=== PATIENT | female | born 1990 | race Caucasian/White ===

== ENCOUNTER → 2020-12-15 | Outpatient (CLI) | payer SELFPAY | END | disposition home or self-care (01) | LOC: LABSPEC 14:27 | PROVIDERS: Referring Provider Physician Assistant; Visit Provider Physician Assistant | DX: Z11.52 Encounter for screening for COVID-19 (principal) | CPT/HCPCS: 87635; U0005; U0003 ==

== ENCOUNTER 2024-06-15 10:06 | Emergency (ER) | payer OTHER, SELFPAY ==
[2024-06-15 10:07] VITALS: BP 216/129; BP 220/121; PULSE 107; PULSE 111; RESP 20; TEMP 37.2; O2SAT 97; O2SAT 99; BMI 48.5
[2024-06-15 10:14] VITALS: BP 194/108; TEMP 37.1
[2024-06-15 10:37] VITALS: BP 158/114
--- NOTE | 2024-06-15 10:50 | EDS_ITS ---
HPI History of Present Illness Chief Complaint: Sore Throat [facility] Medical History (Updated 06/15/24 @ 10:12 by Yanira Espitia) Sore throat Home Medications ?Medication ?Instructions ?Recorded ?Last Taken ?Type amoxicillin 875 mg-potassium 1 tab PO BID 10 days #20 tabs 06/15/24 Unknown Rx clavulanate 125 mg tablet Allergy/AdvReac Type Severity Reaction Status Date / Time No Known Allergies Allergy Verified 06/15/24 10:07 Social History Smoking Status: Unknown if ever smoked EXAM Physical Exam Const Vital Signs: 06/15/24 10:07 06/15/24 10:07 06/15/24 10:14 Temperature 99 F 98.8 F Temperature Source Temporal Oral Pulse Rate 107 H 111 H Respiratory Rate 20 H 20 H Blood Pressure 220/121 H 216/129 H 194/108 H Blood Pressure Mean 154 158 136 Pulse Ox 97 99 Oxygen Delivery Method Room Air Room Air 06/15/24 10:37 06/15/24 14:49 Temperature 98.7 F Temperature Source Pulse Rate 92 Respiratory Rate 16 Blood Pressure 158/114 H 156/100 H Blood Pressure Mean 128 118 Pulse Ox 99 Oxygen Delivery Method MDM MDM MDM Narrative Medical decision making narrative: HISTORY OF PRESENT ILLNESS: Chief complaint: Sore throat 34-year-old female no past medical history presents with sore throat, swollen neck and difficulty swallowing for 2 days. REVIEW OF SYSTEMS: Pertinent positives: Sore throat, difficulty swallowing, swollen neck Pertinent negatives: Vomiting or drooling PHYSICAL EXAM: Nursing triage notes reviewed, Vital signs reviewed Constitutional: please see mdm HENT: MMM, no trismus, severe swelling noted left tonsil, no submandibular edema, no tongue deviation, uvula midline, Eyes: Pupils equal round and reactive to light, Extraocular muscles intact Neck: No stridor, no JVD, full neck ROM, no TTP over neck Lungs: Clear to auscultation, No wheezing or rales. No increased work of breathing, no conversational dyspnea, no accessory muscle use, no nasal flaring. No respiratory distress noted Heart: Regular rate and rhythm, No murmurs, No rubs and No gallops, 2+ distal pulses (radial, femoral, posterior tibial) in all extremities Abdomen: Soft, there is no tenderness, rigidity, rebound or guarding, no obvious peritoneal signs, no palpable pulsatile abdominal masses, no auscultated abdominal bruit : No CVAT Extremities: No edema Neuro: No new focal neurological deficits, cranial nerves II through XII intact, 5/5 strength in all present extremities. Intact sensation to light touch in all present extremities, 2+ reflexes bilateral patella tendons. Skin: No rash or lesions noted MEDICAL DECISION MAKING: Chief Complaint: please see HPI External records reviewed: Reviewed prior imaging studies Factors affecting care: none reported Social determinants of health: denies drug use History obtained from others: none Consults: none [facility] Narrative: The patient was initially tachycardic with a rate of 107, hypertensive with a blood pressure 220/121, she is also tachypneic with a respiratory rate of 20. She is afebrile. Exam with concern for deep neck space infection. There is no drooling or trismus noted. Patient appeared comfortable. Initially treated the patient with IV Unasyn, IV Decadron, Zofran and Toradol as well as 1 L normal saline. I considered the following differential diagnosis: COFFEE BLENDER, RPA, Jose Manuel's angina, Lemierre syndrome, bacterial pharyngitis, viral pharyngitis ALL IMAGES (IF OBTAINED) HAVE BEEN PERSONALLY REVIEWED AND INTERPRETED BY MYSELF. CT scan of the neck showed no evidence of obvious peritonsillar abscess or deep neck space infection or Jose Manuel angina. CT is consistent with tonsillitis. CBC with leukocytosis suggestive of systemic nation, no anemia or thrombocytopenia BMP without evidence of significant electrolyte abnormalities, no anion gap, no acute kidney injury. Lactate is wnl indicating no end-organ hypoperfusion and/or hypoxia. On re-evaluation patient's vital signs improved with blood pressure 156/100 heart rate of 92 respirate of 16 she remained afebrile saturating well on room air. The synthesis of the patient's history, physical exam, labs images suggest likely tonsillitis. Will discharge on oral Augmentin. Strict return precautions will be discussed. Follow-up arranged. The patient and/or family, caregivers express understanding. The patient and/or family, caregivers agrees with the plan. Shared decision making: I will have a discussion with the patient and or visitors regarding risk/benefits of further testing or admission. They will be made aware of of the risk/benefits inherent in this decision they will be given the opportunity to voice understanding. Total critical care time today provided was at least 0 minutes. This excludes separately billable procedures. Critical care time (if documented) is secondary to the patient having high probability of clinically significant/life threatening deterioration in the patient's condition which required my urgent intervention. Impression: 1. Tonsillitis 2. Leukocytosis Dispo: Discharge home This note was generated with [employer] dictation software. It may contain incorrect words, spelling, and punctuation that were not noted in review of the chart prior to signing. Lab Data Labs: Laboratory Results - last 24 hr 06/15/24 11:26 WBC 14.0 H RBC 5.13 Hgb 13.6 Hct 40.3 MCV 78.6 L MCH 26.5 L MCHC 33.7 RDW Std Deviation 36.7 RDW Coeff of Daquan 12.8 Plt Count 397 MPV 9.0 Immature Gran % (Auto) 0.600 Neut % (Auto) 81.1 H Lymph % (Auto) 12.9 L Liberty % (Auto) 4.9 Eos % (Auto) 0.1 Baso % (Auto) 0.4 Absolute Neuts (auto) 11.3 H Absolute Lymphs (auto) 1.81 Nucleated RBC % 0 Sodium 135 Potassium 3.8 Chloride 98 Carbon Dioxide 22.9 Anion Gap 14 BUN 11 Creatinine 0.75 Estim Creat Clear Calc 144.06 Est GFR (MDRD) Non-Af 106 BUN/Creatinine Ratio 14.5 Glucose 107 H Lactic Acid < 1.0 Calcium 9.5 Radiography Diagnostic Testing: Clinical Impression(s) from Imaging Studies Soft Tissue Neck CT 06/15/24 12:02 IMPRESSION: Left palatine tonsillitis with ill-defined phlegmon. No discrete peritonsillar abscess. Dr. Gutiérrez discussed these findings with Dr. Siegel via telephone at 2 p.m. on 06/15/2024. Reading Location: [facility] Discharge Plan Triage Chief Complaint: Sore Throat ED Provider: Neo Siegel Dx/Rx/DC Orders Instructions: ED Tonsillitis Prescriptions: New amoxicillin-pot clavulanate 875-125 mg tablet 1 tab PO BID 10 Days Qty: 20 0RF Primary Care Provider: Phylicia Joe Referrals: Phylicia Joe PA [Primary Care Provider] - Activity Restrictions/Additional Instructions: Thank you for trusting us with your care today! Your CT scan was negative for concerning deeper infection in your neck. Showed evidence of inflammation in your tonsillar tonsillitis. This is treated with oral antibiotics. Please take Tylenol (2 pills, 650 mg), ibuprofen (2 pills, 400 mg) every 6 hours as needed for pain and fever control. Please return to the emergency department if your symptoms change or worsen. Specifically develop difficulty swallowing, drooling, neck stiffness, difficulty opening your mouth, vomiting. Please follow with your primary care physician for further outpatient evaluation and management. Print Language: Arabic Disposition Disposition: Home, Self Care Discharge Date/Time: 06/15/24 14:51
[2024-06-15] MEDS: Ketorolac 15 MG/ML Vial IV (11:32)
[2024-06-15] MEDS: Ondansetron 4 MG/2 ML Vial IV (11:32)
[2024-06-15] MEDS: dexAMETHasone 10 MG/ML Vial IV (11:33)
[2024-06-15] MEDS: 0.9% Normal Saline (1000mL) 1,000 ML 999 ML IV (11:33)
[2024-06-15] MEDS: Ampicillin/Sulbactam 3 GM in 0.9% Normal Saline (100mL MB+) 100 ML IV (11:33)
[2024-06-15 11:41] LABS: Absolute Lymphocyte Count 1.81 X10^3/uL (0.83-4.51); Absolute Neutrophil Count 11.3 X10^3/uL (2.0-7.7); Basophil# 0.05 X10^3/uL; Basophil% 0.4 % (0-1); Eosinophil# 0.01 X10^3/uL; Eosinophils% 0.1 % (0-5); Hematocrit 40.3 % (37-47); Hemoglobin 13.6 g/dL (12.0-15.0); Lymphocyte # 1.81 X10^3/ul (0.83-4.51); Lymphocyte % 12.9 % (19-41); Mean Corp Hgb Conc 33.7 g/dL (32-36); Mean Corpuscular Hgb 26.5 pg (27.0-32.0); Mean Corpuscular Volume 78.6 fL (81-99); Monocyte# 0.69 X10^3/uL; Monocyte% 4.9 % (0-10); NRBC Flagged by Analyzer 0 % (0-5); Neutrophil # 11.34 X10^3/uL (2.7-7.7); Neutrophil % 81.1 % (47-70); Platelet Count 397 K/mm3 (150-450); RBC Distribution Width CV 12.8 % (11.6-14.6); RBC Distribution Width SD 36.7 fl (35.1-43.9); Red Blood Count 5.13 M/mm3 (4.2-5.4)
[2024-06-15 11:53] LABS: Anion Gap 14 (5-15); BUN 11 mg/dL (4-19); BUN/Creat Ratio 14.5 RATIO (10-20); Calcium,Total 9.5 mg/dL (7.6-11.0); Carbon Dioxide 22.9 mmol/L (21.0-32.0); Chloride 98 mmol/L (98-108); Creatinine, Serum 0.75 mg/dL (0.70-1.20); EST Glomerular Filtration Rate 106 (>60); Estimated Creatinine Clearance 144.06 ml/min (50-250); Glucose 107 mg/dL (70-99); Potassium 3.8 mmol/L (3.3-5.1); Sodium Level 135 mmol/L (133-145)
--- NOTE | 2024-06-15 12:02 | CT_ITS ---
PROCEDURE: SOFT TISSUE NECK WITH CONTRAST 06/15/2024 REASON FOR EXAM: 34-year-old female, SORE THROAT, LEFT-SIDED THROAT SWELLING TECHNIQUE: CT of the soft tissues of the neck from the orbits to the upper mediastinum with intravenous contrast. CONTRAST: Isovue 370 VOLUME: 75mL One or more dose reduction techniques were used (e.g., Automated exposure control, adjustment of the mA and/or kV according to patient size, use of iterative reconstruction technique). RADIATION DOSE SUMMARY: CTDlvol: 20 mGy DLP: 630 mGycm COMPARISON: None. FINDINGS: Airway: Midline and patent. Ill-defined thickening of the left palatine tonsil with stranding and mucosal thickening of the left vallecula and piriform sinus. There is focal area of ill-defined hypodensity without discrete rim enhancing fluid collection. Salivary glands: Unremarkable. Lymph nodes: Left level 2A and 2B cervical chain lymphadenopathy, reactive. Thyroid: Unremarkable. Vasculature: Carotid arteries and internal jugular veins are unremarkable. Orbits: Unremarkable at visualized levels. Paranasal sinuses and mastoids: Mucosal thickening of the left alveolar recess. The mastoids and paranasal sinuses are otherwise well-aerated. Lung apices: Slightly limited by motion artifact. No apical consolidation. Upper mediastinum: Visualized mediastinum is unremarkable. Bones: Unremarkable. No aggressive osseous lesions. CT/Soft Tissue Neck WITH Contrast IMPRESSION: Left palatine tonsillitis with ill-defined phlegmon. No discrete peritonsillar abscess. Dr. Gutiérrez discussed these findings with Dr. Siegel via telephone at 2 p.m. o n 06/15/2024. Reading Location: [facility]
[2024-06-15 12:24] LABS: Lactic Acid < 1.0 mmol/L (0.0-2.0)
[2024-06-15 14:49] VITALS: BP 156/100; PULSE 92; RESP 16; TEMP 37.1; O2SAT 99
== END 2024-06-15 14:51 | disposition home or self-care (01) ==
PROVIDERS: Emergency Provider Emergency Medicine; Visit Provider Emergency Medicine
DX: J03.90 Acute tonsillitis, unspecified (principal); D72.829 Elevated white blood cell count, unspecified
CPT/HCPCS: 70491; 80048; 83605; 85025; 96365; 96375; 99284; Q9967; J0295; J2405